=== PATIENT | male | born 2000 | race Caucasian/White ===

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

== ENCOUNTER → 2020-01-21 | Outpatient (CLI) | payer OTHER, MEDICAID ==
--- NOTE | 2020-01-21 11:00 | CARD ---
MR#: [id number] Date of Study: 01/21/2020 Ordering Physician: TAD WONG, Referring Physician: TAD WONG, Tech: Ivy Dobson [facility] APPROVED REPORT EXAM: Two-dimensional and M-mode echocardiogram with Doppler and color Doppler. Other Information Quality : GoodHR: 66bpm Rhythm : NSR INDICATION Dizziness and Vertigo Hypertension/HCVD RISK FACTORS Hypertension Obesity 2D DIMENSIONS RVDd4.0 (2.9-3.5cm)IVSd1.2 (0.7-1.1cm) Aortic Root(2D)3.5 (2.0-3.7cm)LVDd5.1 (3.9-5.9cm) LVOT Diameter2.5 (1.8-2.4cm)PWd1.2 (0.7-1.1cm) LVDs3.7 (2.5-4.0cm)FS (%) 27.8 % SV66.3 mlLVEF(%)53.7 (>50%) Aortic Valve AoV Peak Navdeep.125.5cm/sAoV VTI25.2cm AO Peak GR.6.3mmHgLVOT Peak Navdeep.126.4cm/s AO Mean GR.4mmHgAVA (VMAX)4.96cm2 Mitral Valve MV E Fscpdina100.5cm/sMV DECEL [id number] MV A Xubnhmvv37.9cm/sE/A Ratio1.8 Pulmonary Valve PV Peak Acfnpcby492.3cm/s Pulmonary Vein S1 Zuaiievk89.6cm/sD2 Mvkvidqo04.9cm/s PVa [id number] LEFT VENTRICLE The left ventricle is normal size. There is borderline to mild concentric left ventricular hypertroph y. The left ventricular systolic function is normal. The ejection fraction is 60%. There is normal LV segmental wall motion. The left ventricular diastolic function and filling is normal for age. RIGHT VENTRICLE The right ventricle is normal size. There is normal right ventricular wall thickness. The right ventr icular systolic function is normal. ATRIA The left atrium size is normal. The right atrium size is normal. The interatrial septum is intact wit h no evidence for an atrial septal defect or patent foramen ovale as noted on 2-D or Doppler imaging. AORTIC VALVE The aortic valve is normal in structure and function. Doppler and Color Flow revealed no significant aortic regurgitation. There is no significant aortic valvular stenosis. MITRAL VALVE The mitral valve is normal in structure and function. There is no evidence of mitral valve prolapse. There is no mitral valve stenosis. Doppler and Color-flow revealed trace mitral regurgitation. TRICUSPID VALVE The tricuspid valve is normal in structure and function. Doppler and Color Flow revealed no tricuspid valve regurgitation noted. PULMONIC VALVE The pulmonary valve is normal in structure and function. Doppler and Color Flow revealed trace pulmon ic valvular regurgitation. GREAT VESSELS The aortic root is normal in size. The ascending aorta is normal in size. The pulmonary artery is nor mal. The IVC is normal in size and collapses >50% with inspiration. PERICARDIAL EFFUSION There is no evidence of significant pericardial effusion. Critical Notification Critical Value: No <Conclusion> The left ventricular systolic function is normal. The ejection fraction is 60%. There is normal LV segmental wall motion. Trace mitral regurgitation. There is no evidence of significant pericardial effusion. Signed by : Dmitriy Swanson, Electronically Approved : 01/21/2020 10:59:28
== END | disposition home or self-care (01) ==
LOC: ECHO 08:39
PROVIDERS: ATTEND Internal Medicine Cardiovascular Disease
DX: I11.9 Hypertensive heart disease without heart failure (principal)
CPT/HCPCS: 93306